=== PATIENT | female | born 1970 | race Caucasian/White ===

== ENCOUNTER → 2016-06-04 | Outpatient (CLI) | payer OTHER ==
[~2016-06-04] MED LIST: GLUC-203 PO; LEVO75TA6 PO; OMEG-154 PO; PRAV40TA2 PO; UBID100C44 PO
--- NOTE | 2016-06-04 14:00 | Diagnostic Imaging Report ---
INDICATION: Abnormal uterine bleeding. Unsure of LMP. TECHNIQUE: Multiple real time cook scale sonographic images were obtained of the pelvis transabdominally and endovaginally. CORRELATION STUDY: None. FINDINGS: UTERUS/ENDOMETRIUM: Uterus measures 9.1 x 6.0 x 5.7 cm. The uterus has an unremarkable appearance. The endometrium is upper limits of normal in thickness for a premenopausal patient measuring 14 mm. Cervical nabothian cysts appear to be present. RIGHT OVARY: 2.6 x 3.6 x 2.3 cm, demonstrated on transabdominal imaging only. LEFT OVARY: 2.7 x 3.1 x 2.1 cm. Likely small, physiologic follicles of the ovaries. Vascular flow is demonstrated to both ovaries. No significant free pelvic fluid. IMPRESSION: 1. Endometrial thickness is at the upper limits of normal in thickness for premenopausal patient. Given history, would recommend repeat imaging evaluation for reassessment of the endometrial thickness, preferably in different phase of the patient's menstrual cycle. Possibility of hyperplasia or less likely carcinoma not excluded. 2. Likely physiologic follicles of the ovaries. Dictated by: Dictated on workstation # [id number]
--- NOTE | 2016-06-05 18:24 | Diagnostic Imaging Report ---
Bilateral screening mammogram The current study was also evaluated with a Computer Aided Detection (CAD) system. Indication: Screening. No current complaints stated on the questionnaire. COMPARISON: 12/26/12. FINDINGS: The breasts are composed of heterogeneously dense parenchyma which may decrease mammographic sensitivity. There is no mass, architectural distortion or suspicious cluster of calcification. Punctate calcifications are seen. Allowing for technique and positional differences, no suspicious change is seen. IMPRESSION: No significant change. ACR BI-RADS Category 2: Benign findings. Result letter will be mailed to the patient. Note: At least 10% of breast cancer is not imaged by mammography. Dictated by: Dictated on workstation # [id number]
== END ==
LOC: RAD 10:40
PROVIDERS: ATTEND Family Medicine
DX: Z12.31 Encounter for screening mammogram for malignant neoplasm of breast (principal); N93.9 Abnormal uterine and vaginal bleeding, unspecified
CPT/HCPCS: 76830; 76856; 77067

== ENCOUNTER 2016-07-20 14:16 | Outpatient (CLI) | payer OTHER ==
[~2016-07-20] VITALS: Ht 162.6 cm; Wt 71.7 kg
[2016-07-20 14:22] VITALS: BP 113/75
[2016-07-20] MEDS ORDERED: OMEG-154 PO (15:39)
[2016-07-20] MEDS ORDERED: GLUC-203 PO (15:39)
[2016-07-20] MEDS ORDERED: PRAV40TA2 PO (15:39)
[2016-07-20] MEDS ORDERED: LEVO75TA6 PO (15:39)
[2016-07-20] MEDS ORDERED: UBID100C44 PO (15:39)
== END 2016-07-20 14:30 | disposition home or self-care (01) ==
LOC: PREOP 14:16
PROVIDERS: ATTEND Obstetrics & Gynecology
DX: Z01.818 Encounter for other preprocedural examination (principal); Z11.2 Encounter for screening for other bacterial diseases; N93.9 Abnormal uterine and vaginal bleeding, unspecified
CPT/HCPCS: 87081

== ENCOUNTER 2016-08-03 07:33 | Day surgery (SDC) | payer OTHER ==
[~2016-08-03] VITALS: Ht 162.6 cm; Wt 71.7 kg
[2016-08-03 07:33] VITALS: BP 115/82
[2016-08-03] MEDS ORDERED: LACTATED RINGERS 1,000 ML IV PRN (08:06)
--- NOTE | 2016-08-03 08:09 | Progress Note-Pre Operative ---
Pre-Operative Progress Note H&P Reviewed The H&P was reviewed, patient examined and no changes noted. Date H&P Reviewed: August 03, 2016 Time H&P Reviewed: 08:09 Pre-Operative Diagnosis: Menorrhagia RICK MÉNDEZ MD August 03, 2016 08:09
[2016-08-03] MEDS ORDERED: HYDR-3729 PO ×2 (08:10→10:44)
[2016-08-03] MEDS ORDERED: DOCU-143 PO (08:10)
[2016-08-03] MEDS ORDERED: IBUP-1773 PO (08:10)
--- NOTE | 2016-08-03 08:12 | Discharge Inst-Women's Service ---
Discharge Inst-Women's Serv Depart Medication/Instructions New, Converted or Re-Newed RX: RX on Chart (and transmitted to pharmacy) Final Diagnosis Menorrhagia Consults/Follow Up Additional Follow Up: Yes Orders/Referrals 2-[address] Jalloh Activity Activity: Activity as Tolerated Driving Instructions: You May Drive (or while taking narcotic pain medications) NO SMOKING: NO SMOKING Nothing Inside Vagina: No Douching, No [place], No Tampons Other Activity Nothing in the vagina for 7-10 days Diet Discharge Diet: No Restrictions Symptoms to Report to : Bleeding Excessive, Pain Increased, Fever Over 101 Degrees F, Pain/Pressure in Chest, Vaginal Bleeding Increase, Dizziness/Fainting , Nausea/Vomiting, Shortness of Breath For Any Problems or Questions: Contact Your Physician, Go to Emergency Room RICK JALLOH MD August 03, 2016 08:12
[2016-08-03] MEDS ORDERED: MIDAZOLAM 2 MG/2 ML (VERSED) VIAL ONE (08:14)
[2016-08-03] MEDS ORDERED: fentaNYL INJECTION 100 MCG/2 ML AMP ONE (08:14)
[2016-08-03] MEDS ORDERED: DEXAMETHASONE PF 10 MG/ML (DECADRON) VIAL ONE (08:33)
[2016-08-03] MEDS ORDERED: SEVOFLURANE (ULTANE) 15 ML INHAL SOLN ONE (08:33)
[2016-08-03] MEDS ORDERED: LACTATED RINGERS 1,000 ML IV ONE (08:33)
[2016-08-03] MEDS ORDERED: ONDANSETRON 4 MG/2 ML (SDV) Z0FRAN ONE (08:33)
[2016-08-03] MEDS ORDERED: proPOfol 200 MG/20 ML (DIPRIVAN) VIAL IV ONE ×2 (08:33→09:03)
[2016-08-03] MEDS ORDERED: LIDOCAINE PF 2% 10 ML (XYLOCAINE) AMP ONE (09:04)
--- NOTE | 2016-08-03 09:12 | OB/GYN Operative Report ---
Operative Report Date of Procedure: August 03, 2016 Preoperative Diagnosis: Abnormal uterine bleeding, menorrhagia Postoperative Diagnosis: Same Procedure: Hysteroscopy, Novasure endometrial ablation Surgeon: Rick Jalloh MD Anesthesia: General Indications for Procedure: This is a 45 y/o female with abnormal uterine bleeding. Endometrial biopsy was negative for hyperplasia/malignancy in office. She was counseled on risks/benefits and alternatives and elected to proceed. Findings: Normal appearing endometrial cavity with bilateral tubal ostia visualized, somewhat proliferative endometrium. No lesions noted. 100 cc NS fluid deficit. Procedure: The patient was taken to the operating room where sequential compression devices were placed on the bilateral lower extremities. Intravenous fluids were running. General anesthesia was obtained without difficulty. She was repositioned in the dorsal lithotomy position with the use of Yellofin stirrups. She was prepped and draped in the typical sterile fashion. The bladder was emptied with a straight catheterization yielding 200 cc of clear yellow urine. A weighted speculum was placed in the vagina. A right angle was utilized to elevate the vaginal tissue anteriorly. An Allis was placed on the anterior lip of the cervix. The uterus was sounded to 8cm. Miller dilators were used to dilate the cervix to 17mm. The Truclear 5 mm hysteroscope was then advanced into the uterine cavity under direct visualization. The aforementioned findings were noted; no intrinsic lesions were seen. The hysteroscope was removed. The Novasure SureSound device was utilized to measure the cervix (3cm) and the uterine cavity (5cm). The Novasure device was then placed in the cavity and rotated to a cavity width of 4.4cm and set to a cavity length of 5cm. The cavity check was passed. The device was then utilized for 78 seconds at 121 power. The device was removed after the ablation had concluded. The hysteroscope was reinserted and adequate ablation was noted. All instruments were removed from the vagina at this point. The patient tolerated the procedure well. Instrument counts were correct. The patient was taken to recovery in stable condition. Complications: None Disposition: Home, stable RICK JALLOH MD August 03, 2016 09:12
[2016-08-03] MEDS ORDERED: HYDROcodone/APAP 5 MG/325 MG (LORTAB) TAB PO PRN (09:30)
[2016-08-03] MEDS ORDERED: KETOROLAC 30 MG/ML VIAL IVP ONE (09:30)
[2016-08-03] MEDS ORDERED: D5 LR IV SOLUTION 1,000 ML IV SCH (09:30)
[2016-08-03] MEDS ORDERED: ONDANSETRON 4 MG/2 ML (SDV) Z0FRAN IVP PRN ×2 (09:30→09:45)
[2016-08-03] MEDS ORDERED: KETOROLAC 30 MG/ML VIAL ONE (09:39)
[2016-08-03] MEDS ORDERED: morphine INJ 10 MG/ML 1ML (SYR OR VIAL) IVP PRN (09:45)
[2016-08-03] MEDS ORDERED: fentaNYL INJECTION 100 MCG/2 ML AMP IVP PRN (09:45)
[2016-08-03 10:10] VITALS: BP 101/75
[2016-08-03 10:45] VITALS: BP 110/69
[2016-08-03 11:20] VITALS: BP 114/71
[2016-08-03 11:43] VITALS: BP 114/71
== END 2016-08-03 11:43 | disposition home or self-care (01) ==
LOC: SDC 07:33
PROVIDERS: ATTEND Obstetrics & Gynecology
DX: N92.0 Excessive and frequent menstruation with regular cycle (principal); E78.5 Hyperlipidemia, unspecified; Z79.899 Other long term (current) drug therapy
CPT/HCPCS: 84703

== ENCOUNTER → 2019-04-06 | Outpatient (CLI) | payer BC, OTHER ==
[~2019-04-06] MED LIST changes: +DOCU-143 PO; +HYDR-3729 PO; +IBUP-1773 PO
--- NOTE | 2019-04-06 15:29 | Diagnostic Imaging Report ---
PROCEDURE: US Non-ob pelvis comp/trans. TECHNIQUE: Multiple real-time grayscale images were obtained of the pelvis in various projections endovaginally. Transabdominal imaging was also performed. INDICATION: Endometrial ablation in 2017. Patient currently complains of pain and spotting. FINDINGS: Uterus measures 7.2 x 4.0 x 5.4 cm. There are cervical nabothian cysts present. A small uterine cyst in the mid uterus is seen approximately 10 mm in size. Endometrium is 4 mm in thickness. Right ovary measures 3.4 x 2.2 x 2.5 cm and the left ovary measures 3.1 x 1.9 x 2.2 cm. The ovaries contain small follicles. There is blood flow to both ovaries. No adnexal mass or free fluid is detected. IMPRESSION: Essentially unremarkable pelvic ultrasound apart from occasional nabothian cysts as well as a small uterine cyst. No adnexal mass or free fluid is seen. Dictated by: Dictated on workstation # [id number]
== END ==
LOC: RAD 09:31
PROVIDERS: ATTEND Obstetrics & Gynecology
DX: N88.8 Other specified noninflammatory disorders of cervix uteri (principal); N83.8 Other noninflammatory disorders of ovary, fallopian tube and broad ligament; R10.2 Pelvic and perineal pain; Z98.890 Other specified postprocedural states
CPT/HCPCS: 76830; 76856

== ENCOUNTER → 2019-06-29 | Outpatient (CLI) | payer BC ==
--- NOTE | 2019-06-29 12:33 | Diagnostic Imaging Report ---
INDICATION: Fracture followup. AP, oblique, and lateral views of the right wrist are obtained. There is no previous study for comparison There appears to be a subacute partially healed fracture of the radial styloid in good alignment. No other bony abnormality is seen. Joint spaces are unremarkable. IMPRESSION: Subacute partially healed fracture of radial styloid. No other bony abnormality. Previous films are not available for comparison. Dictated by: Dictated on workstation # [id number]
== END ==
LOC: RAD FS 11:29
PROVIDERS: ATTEND Nurse Practitioner
DX: S52.514D Nondisplaced fracture of right radial styloid process, subsequent encounter for closed fracture with routine healing (principal)
CPT/HCPCS: 73110

== ENCOUNTER → 2019-07-13 | Outpatient (CLI) | payer BC ==
--- NOTE | 2019-07-13 10:47 | Diagnostic Imaging Report ---
INDICATION: Right wrist fracture, followup. TIME OF EXAM: 10:04 a.m. Correlation is made with prior radiograph from 06/29/2019. There is increasing sclerosis at the fracture line involving the styloid of the distal radius. Fracture line is no longer well-visualized. Alignment is anatomic. Distal ulna is intact. Carpus and metacarpals are intact. IMPRESSION: Healing radial styloid fracture. Alignment is anatomic. Dictated by: Dictated on workstation # [id number]
== END ==
LOC: RAD FS 09:50
PROVIDERS: ATTEND Nurse Practitioner
DX: S52.514D Nondisplaced fracture of right radial styloid process, subsequent encounter for closed fracture with routine healing (principal)
CPT/HCPCS: 73110

== ENCOUNTER → 2020-01-09 | Outpatient (CLI) | payer BC ==
--- NOTE | 2020-01-10 09:08 | Diagnostic Imaging Report ---
EXAMINATION: Digital mammogram bilateral screening with CAD. INDICATION: Screening. COMPARISON: This study was compared to the prior exams of 06/04/2016 and 12/26/2012. PERSONAL HISTORY: At this time, there are no current complaints. FINDINGS: The fibroglandular tissue in both breasts is heterogeneously dense. This does limit the sensitivity of this exam. Overall, there does not appear to have been any significant change when compared to the prior study. No primary or secondary sign of malignancy is noted. IMPRESSION: 1. There is no evidence for malignancy. 2. The patient should have her annual bilateral screening mammogram on schedule in December 2020. ACR BI-RADS Category 1: Negative. Result letter will be mailed to the patient. Note: At least 10% of breast cancer is not imaged by mammography. Dictated by: Dictated on workstation # [id number]
== END ==
LOC: RAD 08:27
PROVIDERS: ATTEND Obstetrics & Gynecology
DX: Z12.31 Encounter for screening mammogram for malignant neoplasm of breast (principal)
CPT/HCPCS: 77063; 77067

== ENCOUNTER 2020-02-29 05:34 | Outpatient (RCR) | payer BC ==
[~2020-02-29] VITALS: Ht 162.6 cm; Wt 76.8 kg
== END 2020-02-29 10:13 | disposition home or self-care (01) ==
LOC: PREOP 05:34
PROVIDERS: ATTEND Obstetrics & Gynecology
DX: Z01.812 Encounter for preprocedural laboratory examination (principal); N81.4 Uterovaginal prolapse, unspecified; N93.9 Abnormal uterine and vaginal bleeding, unspecified; Z20.828 Contact with and (suspected) exposure to other viral communicable diseases
CPT/HCPCS: 87635

== ENCOUNTER 2020-03-08 05:34 | Outpatient (RCR) | payer BC | END 2020-03-08 11:50 | disposition home or self-care (01) | LOC: PREOP 05:34 | PROVIDERS: ATTEND Obstetrics & Gynecology | DX: Z01.812 Encounter for preprocedural laboratory examination (principal); N81.2 Incomplete uterovaginal prolapse; Z20.828 Contact with and (suspected) exposure to other viral communicable diseases | CPT/HCPCS: 87635 ==

== ENCOUNTER 2020-03-12 09:19 | Day surgery (SDC) | payer BC ==
[2020-03-12] VITALS (12 sets, daily range): BP systolic 94–111; BP diastolic 51–78
[~2020-03-12] VITALS: Ht 162.6 cm; Wt 76.8 kg
[2020-03-12 09:43] LABS: CLARITY,URINE SL CLOUDY; COLOR,URINE YELLOW; GLUCOSE, URINE (UA) NEGATIVE (NEGATIVE); KETONES,URINE NEGATIVE (NEGATIVE); LEUKOCYTE ESTERASE ,URINE NEGATIVE (NEGATIVE); NITRITE,URINE NEGATIVE (NEGATIVE); PROTEIN,URINE 1+ (NEGATIVE)
[2020-03-12] MEDS ORDERED: metroNIDAZOLE 500MG/100ML IVPB 100 ML IV ONE (09:45)
[2020-03-12] MEDS ORDERED: ceFAZolin INJECTION 1,000 MG in WATER (STERILE) FOR INJECTION 10 ML IV ONE (09:45)
[2020-03-12 09:59] LABS: AMORPHOUS SEDIMENT,UR FEW AMOR URATES /LPF; BACTERIA,URINE TRACE /HPF; BILIRUBIN,URINE 1+ (NEGATIVE); SQUAMOUS EPITHELIAL CELL,UR >50 /HPF
[2020-03-12 10:12] LABS: BASOPHILS % (AUTO) 0 % (0-10); EOSINOPHILS # (AUTO) 0.1 10^3/uL (0.0-0.3); EOSINOPHILS % (AUTO) 2 % (0-10); HEMATOCRIT 40 % (35-52); HEMOGLOBIN 13.3 g/dL (11.5-16.0); LYMPHOCYTES # (AUTO) 2.3 10^3/uL (1.0-4.0); LYMPHOCYTES % (AUTO) 32 % (12-44); MEAN CORPUSCULAR HEMOGLOBIN 30 pg (25-34); MEAN CORPUSCULAR HGB CONC 34 g/dL (32-36); MEAN CORPUSCULAR VOLUME 91 fL (80-99); MEAN PLATELET VOLUME 9.6 fL (9.0-12.2); MONOCYTES # (AUTO) 0.5 10^3/uL (0.0-1.0); MONOCYTES % (AUTO) 7 % (0-12); NEUTROPHILS # (AUTO) 4.3 10^3/uL (1.8-7.8); NEUTROPHILS % (AUTO) 60 % (42-75); PLATELET COUNT 239 10^3/uL (130-400); WHITE BLOOD COUNT 7.2 10^3/uL (4.3-11.0)
[2020-03-12] MEDS ORDERED: LIDOCAINE PF 2% 5 ML (XYLOCAINE) VIAL ONE (10:26)
[2020-03-12] MEDS ORDERED: ROCURONIUM 10 MG/ML 5 ML SYRINGE IV ONE (10:26)
[2020-03-12] MEDS ORDERED: SEVOFLURANE (ULTANE) 15 ML INHAL SOLN ONE ×6 (10:26→14:01)
[2020-03-12] MEDS ORDERED: LIDOCAINE/EPI 1%-1:100,000 (XYLOCAINE) 50 ML ONE (10:26)
[2020-03-12] MEDS ORDERED: proPOfol 200 MG/20 ML (DIPRIVAN) VIAL IV ONE (10:26)
[2020-03-12] MEDS ORDERED: ONDANSETRON 4 MG/2 ML (SDV) Z0FRAN ONE (10:26)
[2020-03-12] MEDS ORDERED: MIDAZOLAM 2 MG/2 ML (VERSED) VIAL ONE (10:27)
[2020-03-12] MEDS ORDERED: fentaNYL INJECTION 100 MCG/2 ML AMP ONE ×2 (10:27→13:30)
--- NOTE | 2020-03-12 10:33 | History & Physical-Surgical ---
HPO-Surgical History of Present Illness Chief Complaint: endometrial cyst, abnormal bleeding Due to ablation and cervical stenosis, cannot further evaluate the endometrium. She requests definitive treatment. She is not a candidate for further ablation as she has had an ablation and has continued to have bleeding. She has completed childbearing and has had a tubal ligation. Patient has had increasing breakthrough bleeding since her ablation. Started having increase in abdominopelvic pain as well. Seen in 11/2018 for annual skeiner exam. Pap neg/HR HPV neg. She was having RLQ pain with history of a cyst. Reassurance was given, but as pain increased and bleeding increased, she returned in 04/10. She then had US that showed normal adnexa but has an endometrial cyst. States over the past year, the pain is slightly better, but continues. She however has incrase in bleeding. In october she bled nearly every day. Went to PCP last month due to fatigue and labs were wnl. She has had BTL and has completed childbearing. She would like to consider definitive treatment with hysterectomy. PRevious pap and endometrial biopsy neg. Path at ablation/hysteroscopy was neg. Last mamm 2018 was wnl. Having increased pressure with prolapse. Had mamm 01/08 that was wn Due to abnormal uterine bleeding, cervical stenosis, incomplete UV prolapse, endometrial cysts, Will plan RaTH, bilateral salpingectomy on 03/05/2020. Risks of surgery, including bleeding, infection, injury to bowel, bladder and ureter explained to patient. Appropriate consents have been amador. Will do prophylactic antibiotics and SCDs. NPO after midnight. Addendum - due to my family emergency, surgery was post poned to 03/12/2020 Diagnosis/Surgical Indication: Menorrhagia Procedure: RaTH, bilateral salpingectomy (partial) Weight (Pounds): 158 Weight (Ounces): 0.0 Height (Feet): 5 Height (Inches): 4.00 Allergies and Home Medications Allergies Coded Allergies: No Known Drug Allergies (Unverified , 07/20/16) Home Medications Levothyroxine Sodium 75 Mcg Tablet, 75 MCG PO DAILY, (Reported) Pravastatin Sodium 40 Mg Tablet, 40 MG PO HS, (Reported) Patient Home Medication List Home Medication List Reviewed: Yes Past Puzahqv-Ubdbbt-Gfpjhr Hx Patient Social History Marrital Status: Recent Foreign Travel: No Contact w/other who traveled: No Recent Hopitalizations: No Seasonal Allergies Seasonal Allergies: Yes Surgeries Yes (wisdom teeth, cyst from wrist x2, bilat knee scope, ) Tonsillectomy, Tubal Ligation Respiratory No Cardiovascular No Neurological No Reproductive System Hx Reproductive Disorders: Yes (AUB) Genitourinary No Gastrointestinal No Musculoskeletal No Endocrine History of Endocrine Disorders: Yes HEENT History of HEENT Disorders: No Cancer No Psychosocial History of Psychiatric Problem: No Integumentary History of Skin or Integumenta: No Blood Transfusions History of Blood Disorders: No Exam Vital Signs Capillary Refill : Labs Laboratory Tests Test 03/12/20 09:34 03/12/20 09:53 Range/Units Urine Color YELLOW Urine Clarity SL CLOUDY Urine pH 6.0 5-9 Urine Specific [place] >=1.030 1.016-1.022 Urine Protein 1+ H NEGATIVE Urine Glucose (UA) NEGATIVE NEGATIVE Urine Ketones NEGATIVE NEGATIVE Urine Nitrite NEGATIVE NEGATIVE Urine Bilirubin 1+ H NEGATIVE Urine Urobilinogen 0.2 < = 1.0 MG/DL Urine Leukocyte Esterase NEGATIVE NEGATIVE Urine RBC (Auto) NEGATIVE NEGATIVE Urine RBC NONE /HPF Urine WBC 5-10 H /HPF Urine Squamous Epithelial Cells >50 H /HPF Urine Crystals NONE /LPF Urine Amorphous Sediment FEW REINALDO URATES H /LPF Urine Bacteria TRACE /HPF Urine Casts NONE /LPF Urine Mucus NEGATIVE /LPF Urine Culture Indicated NO White Blood Count 7.2 4.3-11.0 10^3/uL Red Blood Count 4.37 3.80-5.11 10^6/uL Hemoglobin 13.3 11.5-16.0 g/dL Hematocrit 40 35-52 % Mean Corpuscular Volume 91 80-99 fL Mean Corpuscular Hemoglobin 30 25-34 pg Mean Corpuscular Hemoglobin Concent 34 32-36 g/dL Red Cell Distribution Width 13.2 10.0-14.5 % Platelet Count 239 130-400 10^3/uL Mean Platelet Volume 9.6 9.0-12.2 fL Immature Granulocyte % (Auto) 0 % Neutrophils (%) (Auto) 60 42-75 % Lymphocytes (%) (Auto) 32 12-44 % Monocytes (%) (Auto) 7 0-12 % Eosinophils (%) (Auto) 2 0-10 % Basophils (%) (Auto) 0 0-10 % Neutrophils # (Auto) 4.3 1.8-7.8 10^3/uL Lymphocytes # (Auto) 2.3 1.0-4.0 10^3/uL Monocytes # (Auto) 0.5 0.0-1.0 10^3/uL Eosinophils # (Auto) 0.1 0.0-0.3 10^3/uL Basophils # (Auto) 0.0 0.0-0.1 10^3/uL Immature Granulocyte # (Auto) 0.0 0.0-0.1 10^3/uL General Appearance: Alert, Oriented X3 HEENT: Atraumatic Respiratory: Clear to Auscultation, Normal Air Movement Cardiovascular: Regular Rate, Normal S1, Normal S2 Assessment/Plan Assessment and Plan 1. Abnormal uterine bleeding 2. Endometrial cyst 3. Incomplete uterovaginal prolapse See history Plan surgery for 03/12/2020 Admission Diagnosis Admission Status: Other (Same Day Surgery 23 hour ) BRAEDEN WHYTE DO Mar 12, 2020 10:33
[2020-03-12] MEDS: LACTATED RINGERS 1,000 ML IV PRN ×2 (12:02→19:47)
[2020-03-12] MEDS ORDERED: BSS 15 ML ONE (13:27)
[2020-03-12] MEDS ORDERED: CHLORASEPTIC LOZENGE MM PRN (13:30)
[2020-03-12] MEDS ORDERED: LACTATED RINGERS 1,000 ML IV SCH (13:30)
[2020-03-12] MEDS ORDERED: ONDANSETRON 4 MG (ZOFRAN) ORAL DISSOLVE TAB PO PRN (13:30)
[2020-03-12] MEDS ORDERED: morphine INJ 4 MG/ML 1 ML (VIAL/SYRINGE) IVP PRN (13:30)
[2020-03-12] MEDS ORDERED: KETOROLAC 30 MG/ML VIAL IV SCH (13:30)
--- NOTE | 2020-03-12 13:32 | Operative Report ---
Operative Report Date of Procedure/Surgery Mar 12, 2020 Surgeon (s) BRAEDEN WHYTE DO Irradiated Fuel Handler (s): NA Post-Operative Diagnosis dysfunctional uterine bleeding, cervical os stenosis endometrial cyst Procedure Performed RaTH, bilateral salpingectomy Description of Procedure Estimated blood loss (mL): 200 ml Specimen(s) collected/removed uterus and bilateral tubes Description of the Procedure After informed consent was obtained, patient was taken into the operating room where general anesthetic was found to be adequate. She was prepped and draped in the usual sterile fashion in the dorsal lithotomy position. A Aguayo catheter was placed. A speculum was placed in the vagina. The cervix was visualized and the anterior lip was grasped with a sharp toothed tenaculum. In the office the cervix appeared stenotic. she has ahistory of previou endometrial ablation. The uterus was sounded and depth was approximately 6.5 centimeters. I placed the Daniel device (6.5 cm) and a 3.5 cm collar was advanced over the cervix. However, I was unable to insert the DANIEL. I then dilated the internal os and was able to insert the sound to a depth of 8 cm. I then inserted the 8 cm DANIEL device and the 3.5 cm collar was advanced over the cervix, inflating the balloon and securing it around the fornix of the cervix. The collar was then secured with sutures at 12 o'clock. Attention was then turned to the patient's abdomen. A supraumbilical incision was made about 8 mm. A Veress needle was inserted and I confirmed intraabdominal placement with a drop in pressure and the saline drop test. The opening pressure was 7 mmHg. I then insufflated the abdomen to a maximum of 15 mmHg with warmed CO2 gas. I placed an additional 8 mm trocar in the left abdomen lateral to the umbilicus approximately 15 cm. It was determined that this could be completed robotically. The second robotic port was placed about 12 cm lateral to the right placement. This was an 8 mm trocar. These were placed under direct visualization of the laparoscope. 1% Lidocaine with epinephrine was injected prior to placement of all trocars. When all placements were confirmed, the patient was placed in steep Trendelenburg allowing adequate visualization and the robot was brought in for docking. The docking was accomplished without difficulty. I then took over the command of the robot utilizing the vessel sealer and monopolar karla. There was evidence of bilateral tubal sterilization with Filshie clips. At this point, I did a bilateral salpingectomy by incising the mesosalpinx bilaterally with the vessel sealer and the karla. I was able to visualize the round ligaments bilaterally and grasped them and cauterized with bipolar cautery and then cut with my karla. Then, I grasped the uterine ovarian ligaments bilaterally and transected using the vessel sealer. I then grasped and transected with the vessel sealer. there was good hemostasis. I then moved my dissection to the posterior leaves of the broad ligament. I dissected the posterior leaves of the broad ligament off the uterine arteries skeletonizing them bilaterally. I then took a second clamp with the vessel sealer and with the karla, transected the vessels away from the lateral aspect to the cervical stroma. These vessels were very dilated and tortuous. I dissected the anterior peritoneum off the lower uterine segment. I continually pushed the bladder back and I took excessively great care and I was eventually able to dissect the vesicouterine peritoneum off the lower uterine segment. I then dissected in a V fashion towards the midline between the uterosacral ligaments. This allowed me to skeletonize the uterine vessels bilaterally. The balloon on the DANIEL was insufflated. This allowed me to see the DANIEL circumferentially. I then performed a colpotomy posteriorly and then amputate with cervix away from the vaginal fornix. I then continued the colpotomy circumferentially. Once this was performed, the captain's assistant removed the uterus, tubes and ovaries through the vagina. She then packed the vagina with a laparotomy sponge to maintain the pneumoperitoneum. . I then began closure of the vaginal cuff. I closed the apices of the vaginal cuff with 2-0 Vicryl V lock sutures with a colposuspension through the uterosacral ligaments. This suspended the apices of the vaginal cuff. I extended this to the midline from both sides and overlapped the V lock sutures in the midline. Excellent closure is noted and hemostasis is achieved. All the needles were removed from the patient's abdomen. The pelvis was irrigated. There was no active bleeding noted. Now, the robotic instruments were removed and the robot was undocked. Bilateral ureters were seen the entire time during the surgery and were peristalsing. There was no excessive bleeding noted. The trocars were removed under direct visualization. The laparoscopic sites were visualized and found to be hemostatic. The trocar sites were injected with 1% lidocaine with epinephrine. The skin incisions were closed with 4-0 Monocryl in a subcuticular fashion and then with Dermabond. Op sites were placed over the incision sites. The instruments were removed from the vagina and I noted there were no abrasions The patient was awakened and taken to recovery in a stable condition. Sponge, lap, needle and instrument counts were correct times two. Findings of the Procedure Cervical os, internal, stenosis 8, 3.5 cm boggy uterus Allergies and Home Medications Allergies Coded Allergies: No Known Drug Allergies (Unverified , 07/20/16) Home Medications Levothyroxine Sodium 75 Mcg Tablet, 75 MCG PO DAILY, (Reported) Pravastatin Sodium 40 Mg Tablet, 40 MG PO HS, (Reported) Patient Home Medication List Home Medication List Reviewed: Yes BRAEDEN WHYTE DO Mar 12, 2020 13:32
[2020-03-12] MEDS ORDERED: ONDANSETRON 4 MG/2 ML (SDV) Z0FRAN IVP PRN (14:00)
[2020-03-12] MEDS ORDERED: PROMETHAZINE INJ 25 MG/ML (PHENERGAN) AMP IVP ONE (14:00)
[2020-03-12] MEDS ORDERED: morphine INJ 10 MG/ML 1ML (SYR OR VIAL) IVP ONE (14:00)
[2020-03-12] MEDS ORDERED: MEPERIDINE (DEMEROL) INJ 50 MG/ML IVP ONE (14:00)
[2020-03-12] MEDS ORDERED: KETOROLAC 30 MG/ML VIAL ONE (14:22)
--- NOTE | 2020-03-12 14:50 | NUR ---
MARIA A LEWIS presented to unit via BED from RECOVERY, accompanied by Olivia SWENSON RN AFTER HAVING SURGERY PER DR. WHYTE. VS taken. REPORT RECEIVED.
[2020-03-12] MEDS ORDERED: ACET-93 PO (14:52)
[2020-03-12] MEDS ORDERED: IBUP-844 PO (14:52)
[2020-03-12] MEDS ORDERED: DCS100C PO (14:52)
[2020-03-12] MEDS ORDERED: OXC5T PO (14:52)
--- NOTE | 2020-03-12 14:54 | Discharge Inst-Women's Service ---
Discharge Inst-Women's Serv Depart Medication/Instructions New, Converted or Re-Newed RX: Other (on chart and transmitted) Final Diagnosis abnormal uterine bleeding endometriotic cyst cervical stenosis incomplete uterovaginal prolapse Problems Reviewed?: Yes Consults/Follow Up Additional Follow Up: Yes (1 week for incision check; 10-12 weeks for pelvic exam ) Activity Activity: Activity as Tolerated Driving Instructions: No Driving for 1 Week NO SMOKING: NO SMOKING Nothing Inside Vagina: No Douching, No [place] (until released (12-31 we eks)), No Tampons Diet Discharge Diet: No Restrictions Symptoms to Report to DrElizabeth: Swelling Increased, Bleeding Excessive, Pain Increased, Fever Over 101 Degrees F, Vaginal Bleeding Increase, Cramps in Feet or Legs, Vaginal Discharge Foul For Any Problems or Questions: Contact Your Physician Skin/Wound Care Infection Signs and Symptoms: Increased Redness, Foul Odor of Wound, Increased Drainage, Skin Itchy or Has a Rash, Increased Swelling, Temperature Above 101 F Operative Area Clean and Dry: You May Remove Bandage (3 days unless soiled or wet) Stitches/Hyampom/Dermabond: Dermabond Bathing Instructions: BRAEDEN Wade DO Mar 12, 2020 14:54
--- NOTE | 2020-03-12 15:10 | NUR ---
FRESH ICE WATER PROVIDED. INITIAL SHIFT ASSESSMENT COMPLETED; SEE INTERVENTION FOR FURTHER. SCDS ON CALVES BILATERALLY. JANE TO D/D. IV TUBING CONVERTED TO PUMP TUBING. PT RATING PAIN 10/10 BUT "IS TOLERABLE" - WILL CONTINUE TO MONITOR. CALL LIGHT WITHIN REACH, NO NEEDS VOICED.
[2020-03-12] MEDS ORDERED: CHLORASEPTIC LOZENGE MM ONE (15:44)
--- NOTE | 2020-03-12 17:50 | NUR ---
PT SITTING UP IN BED EATING. PLAN TO GIVE A PAIN PILL AFTER PT IS DONE EATING PER REQUEST. PT VOICES THAT HER PAIN IS IN HER ABD AND BACK. NO FURTHER NEEDS VOICED. CALL LIGHT WITHIN REACH.
[2020-03-12] MEDS: ACETAMINOPHEN 500 MG TAB (TYLENOL) PO SCH (18:30)
[2020-03-12] MEDS: DOCUSATE SODIUM 100 MG (COLACE) CAP PO SCH (19:47)
[2020-03-12] MEDS: KETOROLAC 30 MG/ML VIAL IV SCH (19:47)
[2020-03-13] MEDS: KETOROLAC 30 MG/ML VIAL IV SCH ×2 (03:28→09:18)
[2020-03-13] MEDS: LACTATED RINGERS 1,000 ML IV PRN (03:30)
[2020-03-13 03:32] VITALS: BP 90/53
--- NOTE | 2020-03-13 07:45 | NUR ---
Pt up to bathroom. New liner and panties applied. +pericare provided.
[2020-03-13] MEDS: DOCUSATE SODIUM 100 MG (COLACE) CAP PO SCH (09:17)
[2020-03-13] MEDS: ACETAMINOPHEN 500 MG TAB (TYLENOL) PO SCH (09:18)
[2020-03-13 09:20] VITALS: BP 104/59
--- NOTE | 2020-03-13 09:35 | NUR ---
THIS RN TO BEDSIDE. VS OBTAINED. MEDS GIVEN; SEE EMAR FOR FURTHER. INITIAL SHIFT ASSESSMENT COMPLETED; SEE INTERVENTION. PT REQUESTING TO GET UP TO THE BATHROOM. PT UP, STEADY ON HER FEET, STAND BY ASSISTANCE PROVIDED. FRESH ICE WATER AND ICE PACK PROVIDED. PT ABLE TO VOID, 200 ML OF CLEAR YELLOW URINE NOTED. WILL START THE DISCHARGE PROCESS. CALL LIGHT WITHIN REACH. NO NEEDS VOICED.
--- NOTE | 2020-03-13 10:40 | NUR ---
DISCHARGE PAPERS PROVIDED AND REVIEWED WITH PT, PT VERBALIZES UNDERSTANDING. NO QUESTIONS VOICED. PAPER SIGNED. FOLLOW UP APPOINTMENT CARDS AND PRESCRIPTION ALSO PROVIDED AT THIS TIME AND PLACED INTO DISCHARGE FOLDER.
--- NOTE | 2020-03-13 11:20 | NUR ---
PT DISCHARGED FROM -[facility] TO PERSONAL AUTO VIA W/C IN STABLE CONDITION ACC BY Haether HAMILTON RN.
[2020-03-13] MEDS ORDERED: IBUPROFEN 600 MG (MOTRIN) TAB PO SCH (14:00)
--- NOTE | 2020-03-14 07:33 | Anesthesia-General Post-Op ---
General Patient Condition Mental Status/LOC: Same as Preop Cardiovascular: Satisfactory Nausea/Vomiting: Absent Respiratory: Satisfactory Pain: Controlled Complications: Absent Post Op Complications Complications None Follow Up Care/Instructions Patient Instructions None needed. Anesthesia/Patient Condition Patient Condition Patient is doing well, no complaints, stable vital signs, no apparent adverse anesthesia problems. No complications reported per nursing. D/C home per [facility] Criteria: Yes ALEX DELUCA CRNA Mar 14, 2020 07:33
== END 2020-03-13 11:20 | disposition home or self-care (01) ==
LOC: SDC 09:19 → LDRP 14:50 → SDC 03-13 11:20
PROVIDERS: ATTEND Obstetrics & Gynecology
DX: N83.8 Other noninflammatory disorders of ovary, fallopian tube and broad ligament (principal); N88.2 Stricture and stenosis of cervix uteri; N93.8 Other specified abnormal uterine and vaginal bleeding; K21.9 Gastro-esophageal reflux disease without esophagitis; E03.9 Hypothyroidism, unspecified; Z79.899 Other long term (current) drug therapy
CPT/HCPCS: 36415; 81000; 84703; 85025; 86850; 86900; 86901; 87081; 88307

== ENCOUNTER → 2021-02-05 | Outpatient (CLI) | payer BC, OTHER ==
[~2021-02-05] MED LIST changes: +ACET-93 PO; +DOCU-239 PO; +IBUP-844 PO; +OXC5T PO
--- NOTE | 2021-02-05 11:47 | Diagnostic Imaging Report ---
Indication: Routine screening. Comparison is made with prior mammogram from 01/09/2020 and 06/04/2016. 2-D and 3-D bilateral screening mammography was performed with CAD. Both breasts are heterogeneously dense, limiting the sensitivity of mammography. There is a nodular density in the retroareolar left breast best seen on the CC view. No definite correlate on the MLO view is seen. The right breast is unremarkable. No malignant-appearing microcalcifications are seen. Axillae are unremarkable. IMPRESSION: BI-RADS Category 0 Nodular density retroareolar left breast. Additional views recommended for further evaluation. ACR BI-RADS Category 0: Incomplete. (Needs additional imaging evaluation). Result letter will be mailed to the patient. Note: At least 10% of breast cancer is not imaged by mammography. Dictated by: Dictated on workstation # [id number]
== END ==
LOC: RAD 11:00
PROVIDERS: ATTEND Family Medicine
DX: Z12.31 Encounter for screening mammogram for malignant neoplasm of breast (principal)
CPT/HCPCS: 77063; 77067

== ENCOUNTER → 2021-02-17 | Outpatient (CLI) | payer OTHER ==
--- NOTE | 2021-02-17 13:46 | Diagnostic Imaging Report ---
EXAMINATION: Unilateral diagnostic left mammogram with CAD. INDICATION: Abnormal screening mammogram. FINDINGS: The screening mammogram performed on 02/05/2021 suggested a nodular density in the retroareolar region of the left breast. This was only visualized on the craniocaudad view. Compression views of this area in the CC projection show no definite abnormality. Rolled views were also performed in the CC projection and these too are unremarkable for malignancy. There is no corresponding abnormality evident on the true lateral view. I suspect that the density seen on the screening mammogram was related to fibroglandular tissue alone. Even so, I would recommend than an ultrasound of the retroareolar region be performed for further study. IMPRESSION: There is no evidence for malignancy. Ultrasound would be recommended for further evaluation. ACR BI-RADS Category 0: Incomplete. (Needs additional imaging evaluation). Result letter will be mailed to the patient. Note: At least 10% of breast cancer is not imaged by mammography. Dictated by: Dictated on workstation # [id number]
--- NOTE | 2021-02-17 14:25 | Diagnostic Imaging Report ---
EXAMINATION: Ultrasound left breast. INDICATION: Abnormal mammogram. FINDINGS: The screening mammogram performed on 02/05/2021 suggested a density in the retroareolar region of the left breast. The diagnostic mammogram performed prior to this study failed to show any sign of malignancy however. On this exam, there is no solid mass to suggest malignancy; however, there is a cluster of cysts in this region as well as a few ectatic ducts. These cysts/ducts have a conglomerate size of approximately 9 x 8 x 5 mm. There is no associated vascularity and I suspect that these findings are benign; however, it may prove worthwhile to have a short-term (6 month) followup mammogram and ultrasound exam of the left breast for continued evaluation. IMPRESSION: There are a few small cysts/ectatic ducts in the retroareolar region of the left breast but there is no solid mass to suggest malignancy. Recommendations as above. ACR BI-RADS Category 3: Probably benign findings. Result letter will be mailed to the patient. Note: At least 10% of breast cancer is not imaged by mammography. Dictated by: Dictated on workstation # [id number]
== END ==
LOC: RAD 13:15
PROVIDERS: ATTEND Family Medicine
DX: N63.20 Unspecified lump in the left breast, unspecified quadrant (principal)
CPT/HCPCS: 76642; 77065; G0279

== ENCOUNTER → 2021-08-15 | Outpatient (CLI) | payer OTHER ==
--- NOTE | 2021-08-15 13:36 | Diagnostic Imaging Report ---
INDICATION: Six-month followup left breast densities. Comparison is made with prior mammogram 02/05/2021 and 01/09/2020. Unilateral left 2-D and 3-D diagnostic mammography was performed with CAD. Area of nodularity in the retroareolar left breast is less prominent on today's study. No new mass or malignant-appearing microcalcifications are seen. Left axilla is unremarkable. IMPRESSION: Retroareolar nodularity seen on prior imaging is less prominent on today's study. Even so, directed sonographic interrogation of the retroareolar left breast is recommended and will be performed today. ACR BI-RADS Category 0: Incomplete. (Needs additional imaging evaluation). Result letter will be mailed to the patient. Note: At least 10% of breast cancer is not imaged by mammography. BI-RADS Category 0 Dictated by: Dictated on workstation # [id number]
--- NOTE | 2021-08-15 14:20 | Diagnostic Imaging Report ---
INDICATION: Breast density and cyst cluster. Study is performed for follow-up. CORRELATION is made with prior left breast ultrasound from 02/17/2021. Sonographic interrogation of the retroareolar left breast was performed. The previously noted cysts in the retroareolar left breast are not well seen on today's study. There is some slight ductal prominence but overall appearance is significantly improved when compared with prior exam. No solid breast mass is identified. IMPRESSION: BI-RADS Category 1 Previously noted dilated ducts and breast cysts in the retroareolar left breast have largely resolved. No concerning sonographic or mammographic finding is identified. Patient may return to routine annual screening mammography. ACR BI-RADS Category 1: Negative. Result letter will be mailed to the patient. Note: At least 10% of breast cancer is not imaged by mammography. Dictated by: Dictated on workstation # [id number]
== END ==
LOC: RAD 11:16
PROVIDERS: ATTEND Family Medicine
DX: N60.02 Solitary cyst of left breast (principal)
CPT/HCPCS: 76642; 77065; G0279

== ENCOUNTER 2022-02-03 14:49 | Emergency (ER) | payer OTHER ==
[~2022-02-03] VITALS: Ht 162.6 cm; Wt 76.0 kg
--- NOTE | 2022-02-03 15:42 | ED Lower Extremity ---
General Chief Complaint: Lower Extremity Stated Complaint: KNEE INJ | FALL Nursing Triage Note: PT AMB TO ED BY POV ON CRUTCHES WITH C/O BILAT KNEE PAIN. PT REPORTS SHE FELL AROUND 1030 TODAY, FELT BOTH KNEES POP, AND HAS BEEN HAVING PAIN BEHIND THE KNEES SINCE. PT PAIN WORSE IN R KNEE THAN L. PT REPORTS SHE HAD ALREADY BEEN HAVING PAIN IN L KNEE AND HAS SEEN DR. ALONZO FOR IT, BUT IT IS WORSE NOW. Source: patient Exam Limitations: no limitations History of Present Illness Date Seen by Provider: Feb 03, 2022 Time Seen by Provider: 15:30 Initial Comments Patient is a 51-year-old female who presents to the emergency department with bilateral knee pain that began acutely when she was turning to shut the door at her home earlier today and she felt a popping sensation in both knees. Patient states she is scheduled for a scope of her left knee with Dr. Alonzo in the near future. She states she has had scopes on both knees in the past which she states were "normal". She states the pain is really only present when she bears weight or attempts to ambulate. Denies any other pain or injury. She has not taken anything today for the symptoms. Onset: this morning Pain/Injury Location: bilateral knee Allergies and Home Medications Allergies Coded Allergies: No Known Drug Allergies (Unverified , 07/20/16) Patient Home Medication List Home Medication List Reviewed: Yes Acetaminophen (Acetaminophen) 500 Mg Tablet, 1,000 MG PO Q8HR Prescribed by: BRAEDEN WHYTE on 03/12/20 145 Docusate Sodium (Dok) 100 Mg Capsule, 100 MG PO BID Prescribed by: BRAEDEN WHYTE on 03/12/20 145 Ibuprofen (Ibu) 600 Mg Tablet, 600 MG PO Q6HR Prescribed by: BRAEDEN WHYTE on 03/12/20 145 Levothyroxine Sodium (Levothyroxine Sodium) 75 Mcg Tablet, 75 MCG PO DAILY, (Reported) Entered as Reported by: PAL BANEGAS on 07/20/16 1539 Oxycodone Hcl (Oxyir Tablet) 5 Mg Tab, 5 MG PO Q4HR Prescribed by: BRAEDEN WHYTE on 03/12/20 145 Pravastatin Sodium (Pravastatin Sodium) 40 Mg Tablet, 40 MG PO HS, (Reported) Entered as Reported by: PAL BANEGAS on 07/20/16 1539 Review of Systems Constitutional: no symptoms reported EENTM: no symptoms reported Respiratory: no symptoms reported Cardiovascular: no symptoms reported Gastrointestinal: no symptoms reported Genitourinary: no symptoms reported Musculoskeletal: joint pain Past Pmcsrtf-Oakhjt-Gnsjlj Hx Patient Social History Tobacco Use?: No Use of E-Cig and/or Vaping dev: No Substance use?: No Alcohol Use?: No Pt feels they are or have been: No Immunizations Up To Date Influenza Vaccine Up-to-Date: No; Not Current Seasonal Allergies Seasonal Allergies: Yes Past Medical History Surgeries: Yes (wisdom teeth, cyst from wrist x2, bilat knee scope, ) Tonsillectomy, Tubal Ligation Respiratory: No Cardiac: No Neurological: No Reproductive Disorders: Yes (AUB) Genitourinary: No Gastrointestinal: No Musculoskeletal: No Endocrine: Yes HEENT: No Cancer: No Psychosocial: No Integumentary: No Blood Disorders: No Physical Exam Vital Signs Vital Signs - First Documented 02/03/22 15:03 Temp 36.8 Pulse 79 Resp 16 B/P (MAP) 145/89 (107) Pulse Ox 99 O2 Delivery Room Air Capillary Refill : Less Than 3 Seconds Height, Weight, BMI Height: 5'4.00" Weight: 158lbs. 0.0oz. [id number]; 28.00 BMI Method: General Appearance: WD/WN, no apparent distress HEENT: normal ENT inspection, TMs normal, pharynx normal Neck: non-tender, full range of motion, supple, normal inspection Cardiovascular: regular rate, rhythm Respiratory: chest non-tender, lungs clear Gastrointestinal: non tender, soft Knees: bilateral knee soft tissue tenderness Neurologic/Psychiatric: no motor/sensory deficits, alert, normal mood/affect, oriented x 3 Skin: normal color, warm/dry Progress/Results/Core Measures Results/Orders My Orders Orders - ADAN ROSSI APRN Knee, 3 Views, Bilateral (02/03/22 15:41) Vital Signs/I&O 02/03/22 02/03/22 15:03 16:42 Temp 36.8 Pulse 79 76 Resp 16 16 B/P (MAP) 145/89 (107) 140/72 Pulse Ox 99 99 O2 Delivery Room Air Room Air Blood Pressure Mean: 107 Progress Progress Note : Progress Note Patient is nontoxic and well-hydrated on exam. No significant provocation of pain to either knee with passive range of motion or palpation although there is some tenderness to palpation superior to the patella bilaterally. Neurovascular function is intact in the distal bilateral lower extremities. No joint instability appreciated. X-rays are acutely negative bilaterally. She will be discharged home with recommendations to follow-up with her orthopedic provider for further evaluation and treatment. She will be given a long-leg knee immobilizer to help her with ambulation. I offered to prescribe a wheelchair but she declined stating that crutches would work fine. Return precautions for urgent symptomology discussed. Patient verbalized understanding. Departure Impression Primary Impression: Bilateral knee pain Qualified Codes: M25.561 - Pain in right knee; M25.562 - Pain in left knee Disposition: 01 HOME, SELF-CARE Condition: Stable Departure-Patient Inst. Decision time for Depature: 16:30 Referrals: RHIANNON BLANK DO (PCP/Family) Primary Care Physician KRISHNA ALONZO MD Patient Instructions: Knee Pain (DC) Work/School Note: Work Release Form Date Seen in the Emergency Department: Feb 03, 2022 Return to Work: Feb 13, 2022 Restrictions: Need Release from Doctor ADAN ROSSI APRN Feb 03, 2022 15:42
--- NOTE | 2022-02-03 16:12 | Diagnostic Imaging Report ---
INDICATION: Bilateral knee pain, fall. Time of Exam: 4:02 PM 3 views of the right and 3 views of the left knee were obtained. Both knees show mild medial compartmental degenerative change with marginal spurring. There is spurring of the tibial spines. Lateral compartments are fairly well maintained. Mild bilateral patellofemoral joint degenerative changes noted. No fractures are seen. There is no joint effusion. IMPRESSION: Degenerative changes bilaterally. No acute bony abnormality is detected. Dictated by: Dictated on workstation # [id number]
[2022-02-03 16:42] VITALS: BP 140/72
== END 2022-02-03 16:42 | disposition home or self-care (01) ==
LOC: EDUNIT# 14:49 → ER 14:52
DX: M25.562 Pain in left knee (principal); M25.561 Pain in right knee; Z28.310 Unvaccinated for COVID-19; X50.0XXA Overexertion from strenuous movement or load, initial encounter; Y92.009 Unspecified place in unspecified non-institutional (private) residence as the place of occurrence of the external cause

== ENCOUNTER → 2022-06-23 | Outpatient (CLI) | payer OTHER ==
--- NOTE | 2022-06-23 14:52 | Diagnostic Imaging Report ---
INDICATION: 51-year-old female, bilateral lower extremity pain. History of hyperlipidemia. TECHNIQUE: Segmental pulse pressures were performed of the upper and lower extremities. FINDINGS: Resting Doppler Blood Pressures RIGHT Brachial: 109 mmHg Ankle (Posterior Tibial): 132 mm Hg Index: 1.17 Ankle (Dorsalis Pedis): 130 mm Hg Index: 1.15 LEFT Brachial: 113 mmHg Ankle (Posterior Tibial): 136 mm Hg Index: 1.20 Ankle (Dorsalis Pedis): 137 mm Hg Index: 1.21 IMPRESSION: Ankle-brachial indices as above. Ankle-Brachial Index Diagnosis/Interpretation <=0.90 Peripheral Arterial Disease 0.91-0.99 Borderline 1.00-1.40 Normal >1.40 Concern for noncompressible arteries, (assoc with Diabetes Mellitus) Dictated by: Dictated on workstation # [id number]
== END ==
LOC: RAD 10:15
PROVIDERS: ATTEND Family Medicine
DX: M79.604 Pain in right leg (principal); M79.605 Pain in left leg
CPT/HCPCS: 93922

== ENCOUNTER → 2022-12-28 | Outpatient (CLI) | payer OTHER ==
--- NOTE | 2022-12-29 11:31 | Diagnostic Imaging Report ---
Indication: Bilateral digital 2-D and 3-D screening with CAD. Comparisons: 07/2021, 01/2021, 12/2019 and 05/2016. Findings: Density 3. No breast mass, spiculated lesion, architectural distortion, suspicious calcifications or changes to suggest malignancy. Impression: ACR BI-RADS Category 1: Negative. Result letter will be mailed to the patient. Note: At least 10% of breast cancer is not imaged by mammography BI-RADS Category 1 Dictated by: Dictated on workstation # [id number]
== END ==
LOC: RAD 09:47
PROVIDERS: ATTEND Nurse Practitioner Family
DX: Z12.31 Encounter for screening mammogram for malignant neoplasm of breast (principal)
CPT/HCPCS: 77063; 77067